=== PATIENT | female | born 1940 | race Two or more races ===

== ENCOUNTER 2016-08-14 18:14 | Emergency (ER) | payer MEDICARE, BC ==
[~2016-08-14] VITALS: Ht 165.1 cm; Wt 86.5 kg
[~2016-08-14 18:14] MED LIST: RANITIDINE PO
[2016-08-14 18:18] VITALS: Ht 165.1 cm; Wt 86.5 kg
[2016-08-14] MEDS ORDERED: ALBUTEROL 0.083% (NEB) 2.5 MG/3 ML AMP NEB STA (19:04)
--- NOTE | 2016-08-14 19:51 | RADRPT ---
PROCEDURE: XR Chest. CLINICAL INDICATION: Asthma exacerbation. TECHNIQUE: Single frontal chest x-ray. COMPARISON: None. FINDINGS: The cardiomediastinal silhouette is unremarkable. There is hypoventilation with bibasilar atelectas is.. No focal infiltrate is seen. There is no pleural effusion. There is no pneumothorax. There a re degenerative changes of the lumbar spine.. IMPRESSION: Hypoventilation with bibasilar atelectasis. No focal infiltrate. RPTAT: [facility]VK .Javed Bella MD, Date Time Electronically viewed and signed by .Javed Bella MD, on 08/14/2016 19:51 .K/
--- NOTE | 2016-08-14 20:06 | ERD ---
ER Documentation Chief Complaint Date/Time DATE: 08/14/16 TIME: 19:59 Chief Complaint cough fever sore throat x 1 week HPI This is a 75-year-old female who presents to the emergency department today with her daughter complaining of sore throat, earache, intermittent fevers and cough for the past week and the cough is worse at night. States she has a lot of phlegm. States she used an albuterol inhaler from her daughter and had some improvement. Denies any vomiting or diarrhea ROS All systems reviewed and are negative except as per history of present illness. Medications Home Meds Active Scripts Acetaminophen* (Tylophen*) 500 Mg Capsule, 1 CAP PO Q6H Y for PAIN AND OR ELEVATED TEMP, #30 CAP Prov:JULIANN INMAN PA-C 08/14/16 Ibuprofen* (Motrin*) 600 Mg Tab, 600 MG PO Q6, #30 TAB Prov:JULIANN INMAN PA-C 08/14/16 Guaifenesin-Dextromethorphan* (Robitussin* DM) 100MG/10MG/5ML Syrup, 10 ML PO Q6H Y for COUGH for 5 Days, ML Prov:JULIANN INMAN PA-C 08/14/16 Albuterol Sulfate* (Ventolin HFA*) 18 Gm Hfa.aer.ad, 2 PUFF INHALATION Q4H, #1 INHALER Prov:JULIANN INMAN PA-C 08/14/16 Azithromycin* (Zithromax*) 250 Mg Tablet, 250 MG PO .ZPACK DIRECTED, #6 TAB TAKE 500 MG (2 TABS) THE FIRST DAY THEN 250 MG (1 TAB) DAYS 2-5 Prov:JULIANN INMAN PA-C 08/14/16 Reported Medications [Ranitidine] No Conflict Check, PO 01/13/15 Allergies Allergies: Coded Allergies: No Known Allergies (Verified Allergy, Unknown, 08/14/16) PMhx/Soc Medical and Surgical Hx: pt denies Medical Hx History of Surgery: Yes (CHOLECYSTECTOMY) Anesthesia Reaction: No Hx Neurological Disorder: No Hx Respiratory Disorders: No Hx Cardiac Disorders: No Hx Psychiatric Problems: No Hx Miscellaneous Medical Probl: No Hx Alcohol Use: No Hx Substance Use: No Hx Tobacco Use: No Smoking Status: Never smoker Physical Exam Vitals Vital Signs Date Time Temp Pulse Resp B/P Pulse Ox O2 Delivery O2 Flow Rate FiO2 08/14/16 19:29 71 20 97 21 08/14/16 18:18 98.6 79 20 163/64 97 Physical Exam Const: NAD Head: Atraumatic Eyes: Normal Conjunctiva ENT: Ears TMs normal. Nose no drainage. Throat no erythema no exudate Neck: Full range of motion..~ No meningismus. Resp: Coarse breath sounds bilaterally in all lung hester. No wheezing. Cardio: Regular rate and rhythm, no murmurs Abd: Soft, non tender, non distended. Normal bowel sounds Skin: No petechiae or rashes Neur: Awake and alert Psych: Normal Mood and Affect Results 24 hrs Current Medications Medications (Trade) Dose Ordered Sig/Alok Route PRN Reason Start Time Stop Time Status Last Admin Dose Admin Albuterol (Proventil 0.083% (Neb)) 5 mg ONCE STAT NEB 08/14/16 19:04 08/14/16 19:05 DC 08/14/16 19:28 DIAGNOSTIC IMAGING REPORT Patient: MAX SOTO : 1940 Age: 75 Sex: F MR #: [id number] DOS: 08/14/16 190 Ordering MD: JULIANN INMAN PA-C Location: [facility] Room/Bed: PROCEDURE: XR Chest. CLINICAL INDICATION: Asthma exacerbation. TECHNIQUE: Single frontal chest x-ray. COMPARISON: None. FINDINGS: The cardiomediastinal silhouette is unremarkable. There is hypoventilation with bibasilar atelectasis.. No focal infiltrate is seen. There is no pleural effusion. There is no pneumothorax. There are degenerative changes of the lumbar spine.. IMPRESSION: Hypoventilation with bibasilar atelectasis. No focal infiltrate. RPTAT: [facility]VK .Javed Bella MD, Date Time Electronically viewed and signed by .Javed Bella MD, on 08/14/2016 19:51 .K/ CC: JULIANN INMAN PA-C Procedures/MDM This is a 75-year-old female who presents to the emergency department today for influenza-like symptoms however patient has had a cough for the past week and she did have coarse breath sounds on physical exam. I did obtain a chest x-ray as well as give the patient a breathing treatment. Patient reported feeling symptomatically better post breathing treatment. Chest x-ray shows hypoventilation with bibasilar atelectasis. There is no focal infiltrate. There is no pleural effusion. There is no pneumothorax. Patient is afebrile here in the emergency department. Her oxygen saturation is 97%. Patient will be given a prescription for azithromycin to treat possible bronchitis. Other differentials to consider are viral URI. have low suspicion for strep pharyngitis, peritonsillar abscess, retropharyngeal abscess, otitis media, PNA, sinusitis, abscess, meningitis, sepsis, or other acute infectious bacterial process. Again patient also has influenza-like symptoms however she has had these for the past week and I do not feel that she would benefit from Tamiflu at this time. She will be given a prescription for Tylenol, Motrin, Robitussin and Ventolin as well I At this time the patient is stable for discharge and outpatient management. They should follow up with their PCP in the next 1-2. They may return to the emergency department sooner if symptoms persist or worsen. Patient and daughter understood and agreed with the plan. Departure Diagnosis: Primary Impression: Influenza-like symptoms Additional Impression: URI (upper respiratory infection) URI type: unspecified URI Qualified Code: J06.9 - Upper respiratory tract infection, unspecified type Condition: Fair JULIANN INMAN PA-C Aug 14, 2016 20:06
[2016-08-14] MEDS ORDERED: ALBU18HF INHALATION (20:07)
[2016-08-14] MEDS ORDERED: AZIT250T94 PO (20:07)
[2016-08-14] MEDS ORDERED: ACET500C5 PO (20:08)
[2016-08-14] MEDS ORDERED: UDROBDM PO (20:08)
[2016-08-14] MEDS ORDERED: IBUP-1542 PO (20:08)
[2016-08-14 20:24] VITALS: PULSE 73
== END 2016-08-14 20:26 | disposition home or self-care (01) ==
LOC: FTE 18:14
DX: J02.9 Acute pharyngitis, unspecified (principal); R50.9 Fever, unspecified; R05 Cough; J06.9 Acute upper respiratory infection, unspecified
CPT/HCPCS: 71010; 94664

== ENCOUNTER 2018-11-05 21:30 | Emergency (ER) | payer MEDICARE, BC ==
[~2018-11-05] VITALS: Ht 152.4 cm; Wt 85.5 kg
[~2018-11-05 21:30] MED LIST changes: +ACET500C5 PO; +ALBU18HF INHALATION; +AZIT250T PO; +GUAI5SYR2 PO; +IBUP-1542 PO
[2018-11-05 21:36] VITALS: Ht 152.4 cm; Wt 85.5 kg
[2018-11-05] MEDS ORDERED: CEFEPIME 2GM/50 ML (PMX) 50 ML IVPB STA (21:43)
[2018-11-05] MEDS ORDERED: SODIUM CHLORIDE 0.9% 1L BAG IV* STA (21:43)
--- NOTE | 2018-11-05 21:43 | ERD ---
ER Documentation Chief Complaint Chief Complaint Fever, SOB, body aches X 1 wk HPI 77-year-old female with no significant prior medical history presents the ED with a 1 day history of body aches, odynophagia, right ear pain and fevers. Mild, nonproductive cough but no chest pain or shortness of breath. Denies ab dominal pain, nausea, vomiting, diarrhea or constipation. No dysuria, polyuria, hematuria or flank pain. No skin rash. Denies headache or neck pain. No ill contacts or recent travel. ROS All systems reviewed and are negative except as per history of present illness. Medications Home Meds Active Scripts Acetaminophen* (Tylenol*) 325 Mg Tablet, 2 TAB PO Q6 PRN for FEVER, #20 TAB Prov:TAMEKA PEREZ MD 11/06/18 Ibuprofen* (Motrin*) 600 Mg Tab, 600 MG PO Q6, #30 TAB Prov:JULIANN INMAN PA-C 08/14/16 Albuterol Sulfate* (Ventolin HFA*) 18 Gm Hfa.aer.ad, 2 PUFF INHALATION Q4H, #1 INHALER Prov:JULIANN INMAN PA-C 08/14/16 Reported Medications Ranitidine Hcl* (Ranitidine Hcl*) 150 Mg Tablet, 150 MG PO HS, #30 TAB 11/06/18 Discontinued Reported Medications [Ranitidine] No Conflict Check, PO 01/13/15 Discontinued Scripts Acetaminophen* (Tylophen*) 500 Mg Capsule, 1 CAP PO Q6H PRN for PAIN AND OR ELEVATED TEMP, #30 CAP Prov:JULIANN INMAN PA-C 08/14/16 Guaifenesin-Dextromethorphan* (Robitussin* DM) 100MG/10MG/5ML Syrup, 10 ML PO Q6H PRN for COUGH for 5 Days, ML Prov:JULIANN INMAN PA-C 08/14/16 Azithromycin* (Zithromax*) 250 Mg Tablet, 250 MG PO .SherryPACK DIRECTED, #6 TAB TAKE 500 MG (2 TABS) THE FIRST DAY THEN 250 MG (1 TAB) DAYS 2-5 Prov:JULIANN INMAN PA-C 08/14/16 Allergies Allergies: Coded Allergies: No Known Allergies (Verified Allergy, Unknown, 08/14/16) PMhx/Soc History of Surgery: Yes (CHOLECYSTECTOMY) Anesthesia Reaction: No Hx Neurological Disorder: No Hx Respiratory Disorders: No Hx Cardiac Disorders: No Hx Psychiatric Problems: No Hx Miscellaneous Medical Probl: No Hx Alcohol Use: No Hx Substance Use: No Hx Tobacco Use: No FmHx No sudden cardiac or stroke Physical Exam Vitals Temp: 103.1. Pulse: 108. Respirations: 20. Blood pressure 161/84. O2 saturation 96% on room air. Physical Exam Const: Mild distress. Head: Atraumatic Eyes: Pupils equal reactive light, extraocular is intact. Normal Conjunctiva ENT: Normal External Ears, Nose and Mouth. Tympanic members are sequeira and mobile bilaterally. Pharynx is clear without erythema or exudate. Neck: Full range of motion. No tender lymphadenopathy. No stridor. No meningismus. Resp: Breath sounds are equal and obese, clear to auscultation bilaterally Cardio: Regular rate and rhythm, no murmurs Abd: Soft, non tender, non distended. Normal bowel sounds Skin: No petechiae or rashes Back: No midline or CVA tenderness Ext: No cyanosis, or edema Neur: Awake and alert. No focal deficit Psych: Normal Mood and Affect Results 24 hrs Laboratory Tests Test 11/05/18 21:51 11/05/18 21:53 11/05/18 21:54 11/05/18 23:54 POC Venous 1.9 mmol/L Lactate Urine Color YELLOW Urine Clarity SLIGHTLY CLOUDY Urine pH 5.0 Urine Specific 1.020 Hardy Urine Ketones TRACE mg/dL Urine Nitrite NEGATIVE mg/dL Urine Bilirubin NEGATIVE mg/dL Urine NEGATIVE mg/dL Urobilinogen Urine Leukocyte TRACE Alvarado/ul Esterase Urine Microscopic 2 /HPF RBC Urine Microscopic 3 /HPF WBC Urine Hemoglobin 1+ mg/dL Urine Glucose NEGATIVE mg/dL Urine Total NEGATIVE mg/dl Protein White Blood Count 3.5 10^3/ul Red Blood Count 5.98 10^6/ul Hemoglobin 12.2 g/dl Hematocrit 39.0 % Mean Corpuscular 65.2 fl Volume Mean Corpuscular 20.4 pg Hemoglobin Mean Corpuscular 31.3 g/dl Hemoglobin Concen t Red Cell 14.7 % Distribution Width Platelet Count 216 10^3/UL Mean Platelet 9.2 fl Volume Immature 0.300 % Granulocytes % Neutrophils % 70.1 % Lymphocytes % 17.6 % Monocytes % 10.8 % Eosinophils % 0.3 % Basophils % 0.9 % Nucleated Red 0.0 /100WBC Blood Cells % Immature 0.010 10^3/ul Granulocytes # Neutrophils # 2.5 10^3/ul Lymphocytes # 0.6 10^3/ul Monocytes # 0.4 10^3/ul Eosinophils # 0.0 10^3/ul Basophils # 0.0 10^3/ul Nucleated Red 0.0 10^3/ul Blood Cells # Prothrombin Time 14.4 Sec Prothrombin Time 1.1 Ratio INR International 1.11 Normalized Ratio Activated 28.2 Sec Partial Thrombopl ast Time Sodium Level 137 mmol/L Potassium Level 4.0 mmol/L Chloride Level 101 mmol/L Carbon Dioxide 23 mmol/L Level Anion Gap 13 Blood Urea 10 mg/dl Nitrogen Creatinine 0.80 mg/dl Est Glomerular mL/min Filtrat Rate mL/min Glucose Level 155 mg/dl Calcium Level 9.5 mg/dl Total Bilirubin 0.9 mg/dl Direct Bilirubin 0.00 mg/dl Indirect 0.9 mg/dl Bilirubin Aspartate Amino 36 IU/L Transf (AST/SGOT) Alanine 29 IU/L Aminotransferase (ALT/SGPT) Alkaline 43 IU/L Phosphatase Troponin I < 0.012 ng/ml Total Protein 7.6 g/dl Albumin 4.6 g/dl Globulin 3.00 g/dl Albumin/Globulin 1.53 Ratio Lactic Acid Level 2.9 mmol/L Test 11/06/18 01:10 Lactic Acid Level 1.1 mmol/L Current Medications Medications Dose Sig/Alok Start Time Status Last (Trade) Ordered Route PRN Stop Time Admin Dose Reason Admin Sodium 1,370 ml BOLUS OVER 2 11/05/18 DC 11/05/18 Chloride HOURS STAT 21:43 21:55 (NS) IV* 11/05/18 21:46 Cefepime HCl 50 ml @ ONCE STAT 11/05/18 DC 11/05/18 100 mls/hr IVPB 21:43 22:00 11/05/18 22:12 Vancomycin 250 ml @ ONCE ONCE 11/05/18 DC 11/05/18 HCl 125 mls/hr IVPB 22:00 22:17 11/05/18 23:59 325 mg STK-MED 11/05/18 DC Acetaminophen ONCE .ROUTE 22:23 (Tylenol 11/05/18 22:24 Tab) 650 mg ONCE ONCE 11/05/18 DC 11/05/18 Acetaminophen PO 23:00 23:04 (Tylenol 11/05/18 23:01 Tab) IV Flush 10 ml STK-MED 11/05/18 DC 11/05/18 (NS 10 ml) ONCE .ROUTE 23:23 23:55 11/05/18 23:24 Sodium 100 ml @ ud STK-MED 11/05/18 DC 11/05/18 Chloride ONCE .ROUTE 23: 23:55 11/05/18 23:24 Iohexol 150 ml STK-MED 11/05/18 DC 11/05/18 (Omnipaque ONCE .ROUTE 23: 23:55 300mg/ ml) 11/05/18 23:24 Procedures/MDM DOCUMENTS REVIEWED: ED nurse, prior records EKG: Time: 21: 51. Sinus tachycardia. Ventricular rate 106. Normal LA QRS. No acute ST segment elevation or depression. Normal axis. No ectopy. My Interpretation IMAGING: Chest AP portable: Cardiac silhouette is normal. The costophrenic angles are clear. No effusions or infiltrates. My interpretation. PROCEDURE: CT soft tissue neck with contrast CLINICAL INDICATION: 77-year-old female. Odynophagia. Sore throat. TECHNIQUE: The study was performed utilizing a multidetector CT scanner. Direct thin section helically acquired axial sections were obtained through the neck after the uneventful intravenous administration of contrast. One or more the following dose reduction techniques were utilized: Automated exposure control, adjustment of the mA/ or kV according to patient's size, or use of iterative reconstruction technique. Coronal and sagittal reformations were obtained. The images were reviewed on a PACS workstation. The CTDIvol is 10.10 mGy and the DLP is 297.43 mGycm. CONTRAST: 100 cc Omnipaque-300 IV COMPARISON: None. FINDINGS: Visualized brain and orbits: The globes and retro-orbital soft tissues are unremarkable. Normal appearing visualized brain. Soft tissues: Normal appearing parotid and submandibular glands. The wool cleaner spaces, left right pterygopalatine fossae and fat fill parapharyngeal spaces are unremarkable. Normal appearing nasal cavity and posterior nasopharynx. The aerodigestive structures are unremarkable. There is decreased aeration of the left piriform sinus, most likely due to mucosal relaxation. Normal appearing retropharyngeal and precervical soft tissues. Normal appearing esophagus. Negative thyroid gland. Lymph nodes: No pathologic adenopathy. Superior mediastinum: No mass or adenopathy. Visualized lung apices: No suspicious pulmonary nodules. Airway: Patent. Osseous structures: C3-C7 spondylosis with disc space narrowing, anterior posterior endplate osteophytes and foraminal narrowing. No lytic or blastic lesions. The patient is edentulous with chronic bone loss involving the superior inferior alveolar ridges. IMPRESSION: 1. No soft tissue mass, cervical lymphadenopathy or abnormal fluid collection identified. 2. Normal appearing proximal esophagus, retropharyngeal precervical soft tissues. 3. Chronic multilevel cervical spondylosis C3-C7. RPTAT: HLRS Physician Wagner Date Time Electronically viewed and signed by Physician Wagner on 11/06/2018 00:16 RS/ MEDICAL DECISION MAKIN-year-old female with no significant prior medical history presents the ED with a 1 day history of body aches, odynophagia, right ear pain and fevers. CBC significant for mild leukopenia but no anemia or thrombocytopenia. Chemistry negative for electrolyte abnormalities, renal insufficiency or hyperglycemia. LFTs are unremarkable for hyperbilirubinemia or transaminitis. Troponin is negative. EKG reveals no evidence of ischemia or dysrhythmia. Chest x-ray is negative for pneumonia or CHF. Rapid strep is negative. Urinalysis is negative for infection. CT scan of the neck to evaluate for retropharyngeal abscess, mass and airway impingement is unremarkable. Abdominal exam is completely benign without tenderness, rebound, guarding, signs of peritonitis or an acute intra-abdominal process including but not limited to appendicitis, diverticulitis, mesenteric ischemia and bowel obstruction hence CT scan is not indicated. Will be considered but no meningismus or signs of meningitis or encephalitis. Patient presents with fever and multiple criteria for systemic inflammatory response syndrome including tachycardia and leukopenia. No bacterial source of infection is identified. Patient presents with fever and nonspecific syndrome suggestive of viral illness. Normal saline 30 cc/kg fluid bolus given based on ideal body weight as patient's BMI is greater than 35. Broad-spectrum antibiotics after cultures. Serum [id number] lactate is 1.9 however lab troponin was 2.9 mmol/L repeat was 1.1 mmol/L. Stable for discharge with precautionary instructions and outpatient follow-up as counseled. Counseled patient and family regarding diagnostic workup, diagnosis and need for followup. Understands to return to ED if symptoms recur, worsen or any other concerns. Departure Diagnosis: Primary Impression: Fever Fever type: unspecified Qualified Codes: R50.9 - Fever, unspecified Additional Impressions: Nonspecific syndrome suggestive of viral illness Viral pharyngitis SIRS (systemic inflammatory response syndrome) Condition: Stable TAMEKA PEREZ MD Nov 05, 2018 21:43
[2018-11-05] MEDS ORDERED: VANCOMYCIN 1 GM (PMX) 250 ML IVPB ONE (22:00)
[2018-11-05] MEDS ORDERED: ACETAMINOPHEN 325 MG TAB ONE (22:23)
[2018-11-05] MEDS ORDERED: ACETAMINOPHEN 325 MG TAB PO ONE (23:00)
[2018-11-05] MEDS ORDERED: SOD CHLORIDE 0.9% 100 ML ONE (23:23)
[2018-11-05] MEDS ORDERED: IOHEXOL 300MG/ML 150 ML BTL ONE (23:23)
[2018-11-06] MEDS ORDERED: RANI150T5 PO (01:21)
[2018-11-06] MEDS ORDERED: ACET325T33 PO (01:34)
[2018-11-06 02:11] VITALS: BP 101/49; PULSE 72; RESP 16
== END 2018-11-06 02:21 | disposition home or self-care (01) ==
LOC: E/R 21:30
DX: J02.9 Acute pharyngitis, unspecified (principal); R65.10 Systemic inflammatory response syndrome (SIRS) of non-infectious origin without acute organ dysfunction; R06.02 Shortness of breath
CPT/HCPCS: 36415; 70491; 71045; 80053; 81001; 83605; 84484; 85025; 85610; 85730; 87040; 87086; 87880; 93005; 96374; 96375; 99285; J0692; J3370; J7030; Q9967